=== PATIENT | female | born 1990 | race Caucasian/White ===

== ENCOUNTER 2016-10-25 19:48 | Emergency (ER) | payer OTHER ==
[2016-10-25] MEDS ORDERED: NS 0.9% 1000 ML* 1,000 ML IV ONE (20:42)
[2016-10-25] MEDS ORDERED: diPHENhydraMINE IV* 50 MG/ML 1 ml VIAL (BENADRYL) IV ONE (20:42)
[2016-10-25 21:42] LABS: ALT 16 U/L (7-52); AST 22 U/L (13-39); Albumin 4.2 g/dL (3.2-5.2); Alkaline Phosphatase 39 U/L (34-104); Anion Gap 5 mmol/L (2-11); BUN/Creatinine Ratio 9.2 (8-20); Blood Urea Nitrogen 6 mg/dL (6-24); C Reactive Protein < 1.00 mg/L (< 5.00); CO2 Carbon Dioxide 27 mmol/L (22-32); Calcium 9.5 mg/dL (8.6-10.3); Chloride 105 mmol/L (101-111); EGFR African American 142.8 (>60); EGFR Non-African American 111.1 (>60); Glucose 82 mg/dL (70-100); Potassium 3.6 mmol/L (3.5-5.0); Sodium 137 mmol/L (133-145); Total Protein 7.2 g/dL (6.4-8.9)
[2016-10-25 21:47] LABS: Hematocrit 45 % (35-47); Hemoglobin 15.1 g/dl (12.0-16.0); Mean Corpuscular HGB Conc 34 g/dl (31-36); Mean Corpuscular Hemoglobin 32 pg (27-31); Mean Corpuscular Volume 94 fL (80-97); Mean Platelet Volume 8 um3 (7.4-10.4); Red Cell Distribution Width 12 % (10.5-15); White Blood Count 10.7 10^3/ul (3.5-10.8)
--- NOTE | 2016-10-25 23:03 | ED ---
Refugio Escobar Rebecca, scribed for Elke Garland MD on 10/25/16 at 2035 . Allergic Reaction/Systemic - HPI Summary HPI Summary: Pt is a 25 y/o F who presents to ED c/o allergic reaction to an unknown cause. Reports that she woke up at 0430 this morning with sudden L eye swelling. Sx have been constant and worsening since onset. Sx aggravated and alleviated by nothing, unchanged by cold compresses and natural antihistamines. Additionally c /o a rash behind the R ear and on the upper extremities bilaterally characterized as pruritic hives. Denies any associated pain, ranking pain 0/10. Denies difficulty breathing, fever and difficulty swallowing. Reports she is unsure of the catalyst of symptoms. Does not believe she was bitten by anything recently. Denies any PMHx and any known allergies. Pt works multimedia programmer outside, in the [employer]. - History of Current Complaint Chief Complaint: EDAllergicReaction Time Seen by Provider: 10/25/16 20:28 Hx Obtained From: Patient Hx Last Menstrual Period: current Onset/Duration: Sudden Onset - 0430 today, Still Present Timing: Constant Severity Currently: None Pain Intensity: 0 Pain Scale Used: 0-10 Numeric Location: Discrete @ - Bilateral UE, behind the R ear Character: Swelling - L eye, Pruritus, Hives Aggravating Factor(s): Nothing Alleviating Factor(s): Nothing Associated Signs And Symptoms: Positive: Negative, Other: - Denies fever, difficulty swallowing. Negative: Difficulty Breathing - Allergies/Home Medications Allergies/Adverse Reactions: Allergies Allergy/AdvReac Type Severity Reaction Status Date / Time No Known Allergies Allergy Verified 10/25/16 20:46 PMH/Surg Hx/FS Hx/Imm Hx Previously Healthy: Yes Endocrine/Hematology History: Denies: Hx Diabetes Cardiovascular History: Denies: Hx Hypertension Infectious Disease History: No Infectious Disease History: Denies: Traveled Outside the [place] in Last 30 Days - Family History Known Family History: Negative: Hypertension - Social History Lives: Alone Alcohol Use: None Substance Use Type: Reports: None Smoking Status (MU): Never Smoked Tobacco Review of Systems Negative: Fever Positive: Other - L eye swelling Positive: Other - Denies difficulyt swallowing and breathing Positive: Rash - pruritic hives without any pain All Other Systems Reviewed And Are Negative: Yes Physical Exam - Summary Physical Exam Summary: General: Well appearing, no pain distress Skin: Warm, Dry. Edema, erythema and urticaria all over her face, with the L eye more edematous then the R. There is a small erythematous papule over the inferior lateral aspect of the L eye. Scattered hives all over her body. Eyes: EOMI bilaterally, MARIANN ENT: Pharynx normal, TMs normal Neck: Supple, nontender Respiratory: CTA, breath sounds present, no rhonchi, no wheezes, no rales Cardiovascular: RRR, no murmur, no rub, no gallop Musculoskeletal: DEBORAH, No edema Neuro: Sensory/motor intact, A&Ox3, CN intact 2-12 Psych: Affect/mood appropriate Triage Information Reviewed: Yes Vital Signs On Initial Exam: Initial Vitals Temp Pulse Resp BP Pulse Ox 98.3 F 73 18 119/68 100 10/25/16 20:06 10/25/16 20:06 10/25/16 20:06 10/25/16 20:06 10/25/16 20:06 Vital Signs Reviewed: Yes Diagnostics - Vital Signs Vital Signs Temp Pulse Resp BP Pulse Ox 10/25/16 20:06 98.3 F 73 18 119/68 100 - Laboratory Lab Results: Lab Results 10/25/16 10/25/16 Range/Units 20:32 20:32 WBC 10.7 (3.5-10.8) 10^3/ul RBC 4.80 (4.0-5.4) 10^6/ul Hgb 15.1 (12.0-16.0) g/dl Hct 45 (35-47) % MCV 94 (80-97) fL MCH 32 H (27-31) pg MCHC 34 (31-36) g/dl RDW 12 (10.5-15) % Plt Count 312 (150-450) 10^3/ul MPV 8 (7.4-10.4) um3 Neut % (Auto) 55.5 (38-83) % Lymph % (Auto) 28.2 (25-47) % H[place] % (Auto) 8.7 (1-9) % Eos % (Auto) 7.1 H (0-6) % Baso % (Auto) 0.5 (0-2) % Absolute Neuts (auto) 5.9 (1.5-7.7) 10^3/ul Absolute Lymphs (auto) 3.0 (1.0-4.8) 10^3/ul Absolute Monos (auto) 0.9 H (0-0.8) 10^3/ul Absolute Eos (auto) 0.8 H (0-0.6) 10^3/ul Absolute Basos (auto) 0.1 (0-0.2) 10^3/ul Absolute Nucleated RBC 0.01 10^3/ul Nucleated RBC % 0.1 Sodium 137 (133-145) mmol/L Potassium 3.6 (3.5-5.0) mmol/L Chloride 105 (101-111) mmol/L Carbon Dioxide 27 (22-32) mmol/L Anion Gap 5 (2-11) mmol/L BUN 6 (6-24) mg/dL Creatinine 0.65 (0.51-0.95) mg/dL Est GFR ( Amer) 142.8 (>60) Est GFR (Non-Af Amer) 111.1 (>60) BUN/Creatinine Ratio 9.2 (8-20) Glucose 82 (70-100) mg/dL Calcium 9.5 (8.6-10.3) mg/dL Total Bilirubin 0.30 (0.2-1.0) mg/dL AST 22 (13-39) U/L ALT 16 (7-52) U/L Alkaline Phosphatase 39 (34-104) U/L C-Reactive Protein < 1.00 (< 5.00) mg/L Total Protein 7.2 (6.4-8.9) g/dL Albumin 4.2 (3.2-5.2) g/dL Globulin 3.0 (2-4) g/dL Albumin/Globulin Ratio 1.4 (1-3) Result Diagrams: 10/25/16 20:32 10/25/16 20:32 Lab Statement: Any lab studies that have been ordered have been reviewed, and results considered in the medical decision making process. 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 onset of left eye swelling yesterday and hives that worsened today with difficulty opening left eye tonight and now right eye swelling and facial hives. op is normal, diffuse scattered hives to forearms no sob. wbc is normal. pt didn't want steroids and we discussed the plusses and minuses I do not think this is an infection and she does have eomi . I have put a steroid and augmentin script in for her in case she decides to utilize a steroid and in case she starts getting infection symptoms - Diagnoses Provider Diagnoses: Allergic reaction Discharge - Discharge Plan Condition: Stable Disposition: HOME Prescriptions: Amoxicillin/Clavulanate TAB* [Augmentin TAB 875*] 875 mg PO BID #20 tab Famotidine TAB* [Pepcid 20 MG TAB*] 20 mg PO BID #20 tab Prednisone [Deltasone] 20 mg PO DAILY #20 tab diPHENhydraMINE PO* [Benadryl PO 50 MG CAP*] 50 mg PO Q6H PRN #20 cap MDD 4 PRN Reason: Allergy Symptoms Patient Education Materials: General Allergic Reaction (ED) Referrals: Abiola Baumann MD [Primary Care Provider] - 3 Days Additional Instructions: Return to ED for any returning or worsening symptoms. The documentation as recorded by the Refugio jean Rebecca accurately reflects the service I personally performed and the decisions made by me, Elke Garland MD.
[2016-10-25] MEDS ORDERED: diPHENhydraMINE PO* 25 MG PO ONE (23:50)
[2016-10-26 01:18] VITALS: BP 101/72
== END 2016-10-26 00:10 | disposition home or self-care (01) ==
LOC: ED 19:48
DX: T78.40XA Allergy, unspecified, initial encounter (principal); R21 Rash and other nonspecific skin eruption; X58.XXXA Exposure to other specified factors, initial encounter
CPT/HCPCS: 36415; 80053; 85025; 86140; 96374; 99284; A9270-GY; J1200

== ENCOUNTER 2019-01-13 14:49 | Emergency (ER) | payer OTHER ==
--- NOTE | 2019-01-13 17:14 | UC ---
HPI Febrile Illness - HPI Summary HPI Summary: 28 y/o female presents to the urgent care c/o intermittent fever, body aches and PEÑA since 12/31/2018. Pt reports she has intermittent fevers for 5-6 days and then symptoms improved and Friday fever returned again. Max temp has been 104F. She has taking herbs and Advil PO 400mg to control fever. she also states she has had an intermittent dry cough w/ mild wheezing since November. she has been living in a place where there is mold. She is concerned this is the cause of her symptoms. Pt also states Hx of Tick bite last year 2017 w/o any prophylactic treatment. Pt had 1 episodes of vomiting about 3 days ago which has now resolved. Pt denies dizziness, photophobia, neck pain, joint pains, SOB , chest pain, abdominal pain, N/V/d. - History of Current Complaint Chief Complaint: UCGeneralIllness Time Seen by Provider: 01/13/19 16:53 Hx Obtained From: Patient Hx Last Menstrual Period: 01/13/19 Onset/Duration: Started Weeks Ago - 2 weeks ago, Still Present Timing: Intermittent Temperature: 104 F Initial Severity: Mild Current Severity: Moderate Pain Intensity: 6 - body aches and PEÑA Pain Scale Used: 0-10 Numeric Aggravating Factors: Other: - cough and mild wheezing - Allergy/Home Medications Allergies/Adverse Reactions: Allergies Allergy/AdvReac Type Severity Reaction Status Date / Time No Known Allergies Allergy Verified 01/13/19 18:42 PMH/Surg Hx/FS Hx/Imm Hx Previously Healthy: Yes - Pt denies PMHX - Surgical History Surgical History: None - Family History Known Family History: Positive: None - Pt denies FMHX Negative: Hypertension - Social History Occupation: Employed Full-time Lives: With Family Alcohol Use: Rare Substance Use Type: None Smoking Status (MU): Never Smoked Tobacco Review of Systems All Other Systems Reviewed And Are Negative: Yes Constitutional: Positive: Fever, Chills, Fatigue, Other - body aches Skin: Positive: Negative Eyes: Positive: Negative ENT: Positive: Negative Respiratory: Positive: Cough, Other - mild wheezing Cardiovascular: Positive: Negative Gastrointestinal: Positive: Negative Genitourinary: Positive: Negative Motor: Positive: Negative Neurovascular: Positive: Negative Musculoskeletal: Positive: Negative Neurological: Positive: Negative Psychological: Positive: Negative Is Patient Immunocompromised?: No Physical Exam - Summary Physical Exam Summary: Vital Signs Reviewed: Yes General: well developed, well nourished female sitting in the examining table w/ o any apparent distress Eyes: Positive: Conjunctiva Clear - PERRLA, EOMI, fundi grossly normal ENT: Positive: Normal ENT inspection, Hearing grossly normal, Pharynx normal, Nasal congestion - edematous and erythematous nasal mucosa, Nasal drainage - yellowish drainage, TMs normal. Negative: Tonsillar swelling, Tonsillar exudate Neck: Positive: Supple, Nontender, No Lymphadenopathy Respiratory: no orthopnea or dyspnea. Able to speak in full sentences, no retractions or accessory muscle use, no tripod position, stridor, or head bobbing. Positive breath sounds bilaterally. diffuse scattered wheezing and mild crackles on b/L lungs, no rhonchi or rales. Cardiovascular: Positive: RRR, No Murmur, Pulses Normal, Brisk Capillary Refill Abdomen Description: Positive: Nontender, No Organomegaly, Soft. Negative: CVA Tenderness (R), CVA Tenderness (L) Bowel Sounds: Positive: Present Musculoskeletal Exam: Normal Musculoskeletal: Positive: Strength Intact, ROM Intact, No Edema Neurological Exam: Normal Psychological Exam: Normal Skin Exam: Normal Triage Information Reviewed: Yes Vital Signs: Initial Vital Signs Temp 99.9 F 01/13/19 15:42 Pulse 102 01/13/19 15:42 Resp 18 01/13/19 15:42 BP 90/58 01/13/19 15:42 Pulse Ox 99 01/13/19 15:42 Course/Dx - Course Course Of Treatment: 28 y/o female presents to the urgent care c/o intermittent fever, body aches and PEÑA since 12/31/2018. Pt reports she has intermittent fevers for 5-6 days and then symptoms improved and Friday fever returned again. Max temp has been 104F. She has taking herbs and Advil PO 400mg to control fever. she also states she has had an intermittent dry cough w/ mild wheezing since November. she has been living in a place where there is mold. She is concerned this is the cause of her symptoms. Pt also states Hx of Tick bite last year 2017 w/o any prophylactic treatment. Pt had 1 episodes of vomiting about 3 days ago which has now resolved. Pt denies dizziness, photophobia, neck pain, joint pains, SOB , chest pain, abdominal pain, N/V/d. Hx obtained. Pt is hemodinamically stable , A&OX3, febrile and HR:102bpm and BP:90/58, MEWS criteria level 4. Pt w/ scattered wheezes and mild crackles on bilaterally lungs, on examination. O2Sat:99%. Pt given Tylenol PO and and Duoneb Treatment to alleviate symptoms. Pt tolerated well treatment and lungs improve. Rapid influenza A&B: negative. chest X-ray ordered: IMPRESSION: Nonspecific subtle alveolar and interstitial infiltrates which may reflect bronchopneumonia or interstitial lung disease potentially inhalation lung disease given note of mold exposure. UA: trace of blood. Pt w/ her period today. Pt's symptoms discussed w/ Dr Marie since Pt w/ pneumonia or interstitial lung disease possible due to long exposure to mold. Dr Marie recommended Pt to go to the ER for further management. Parents and PT offered ambulance transfer and the risks of not taking it. Pt declined and Parents stated they will take her to the ER immediately. Dr Marie discussed Pt's symptoms w/ charge Nurse Tena at [facility]. and she accepted the patient. Pt left the clinic hemodynamically stable, A&OX3. - Febrile Illness Differential Diagnoses: Bacteremia, Fever of Unknown Origin, Meningitis, Pneumonia, Sepsis, Viremia, Other: - lyme - Diagnoses Provider Diagnosis: Pneumonia - Provider Notifications Discussed Patient Care With: Jennifer Marie - DR Pavon agreed w/ Pt's plan of care Discharge - Sign-Out/Discharge Documenting (check all that apply): Patient Departure - Ptand parent highly recommended to go to the ER for further management on her pneumonia All imaging exams completed and their final reports reviewed: Yes - Discharge Plan Condition: Stable Disposition: HOME-RECOMMEND TO ED Patient Education Materials: Pneumonia (ED) Referrals: Abiola Baumann MD [Primary Care Provider] - Additional Instructions: I think you need a higher level or care for your presenting symptoms. I highly recommend you to go to the ER for further evaluation and treatment. The risks of not going can be , sepsis, pneumonia, etc. Dr Marie spoke to charge Nurse Tena. They are expecting you. - Billing Disposition and Condition Condition: STABLE Disposition: Home-Recommend to ED - Attestation Statements Provider Attestation: I was available for consult. This patient was seen by the GUANAKO. The patient was not presented to, seen by, or examined by me. -[place]anna
[2019-01-13] MEDS ORDERED: Albuterol/Ipratropium NEB.SOL* Albuterol 2.5 MG/Ipratropium 0.5 MG 3 ML INH ONE (17:15)
[2019-01-13] MEDS ORDERED: Acetaminophen TAB* 325 MG PO ONE (17:17)
[2019-01-13 17:22] VITALS: BP 94/64
[2019-01-13 18:04] LABS: Influenza A Molecular NEGATIVE (Negative); Influenza B Molecular NEGATIVE (Negative)
== END 2019-01-13 18:20 | disposition home health service (06) ==
LOC: UCEAST 14:49
DX: J18.9 Pneumonia, unspecified organism (principal)
CPT/HCPCS: 71046; 81003; 99212; A9270-GY; G0463

== ENCOUNTER 2019-01-13 18:36 | Emergency (ER) | payer OTHER ==
[2019-01-13] MEDS ORDERED: Ketorolac INJ* 30 MG/ML 1 ML VIAL IV PUSH ONE (20:32)
[2019-01-13] MEDS ORDERED: NS 0.9% 1000 ML** 1,000 ML IV ONE (20:33)
--- NOTE | 2019-01-13 20:37 | ED ---
Complex/Multi-Sys Presentation - HPI Summary HPI Summary: 28 year old F presents to [facility] accompanied by 2 parents with a chief complaint of intermittent episodes of fevers, coughs, and body ache lasting for weeks. Patient reports cough started in October 2018 for which she started sleeping outside alleviating the cough. Patient reports body aches started 12/31/18 and that the next day she had a fever. Patient reports the next 4- 5 days she had constant fevers, the highest being 103 F. Patient reports after those episodes she felt better but starting 3 days ago, 01/10/19, she relapsed having body aches and high fevers. Patient reports 104 F today for which she took 2 Tylenol at 1730 at Urgent Care where she had 100.8 F. Patient reports fevers are constant, denying worsening symptoms at night. She notes she vomited 2 nights ago. Patient denies diarrhea and a recent tick bite. Patient describes cough as dry and reports SOB when the fevers are really high. Patient reports menstrual cramps due to current period but denies dysuria. Symptoms aggravated by nothing. Symptoms alleviated by OTC medications and time outside. - History Of Current Complaint Chief Complaint: EDFever Time Seen by Provider: 01/13/19 20:17 Hx Obtained From: Patient Onset/Duration: Lasting Weeks, Still Present Timing: Intermittent, Lasting: Aggravating Factor(s): nothing Alleviating Factor(s): OTC meds, time outside Associated Signs And Symptoms: Positive: SOB, Cough, Nausea, Vomiting, Fever. Negative: Diarrhea, Dysuria - Allergies/Home Medications Allergies/Adverse Reactions: Allergies Allergy/AdvReac Type Severity Reaction Status Date / Time No Known Allergies Allergy Verified 01/13/19 18:42 PMH/Surg Hx/FS Hx/Imm Hx Endocrine/Hematology History: Denies: Hx Diabetes Cardiovascular History: Denies: Hx Hypertension - Surgical History Surgery Procedure, Year, and Place: None - Immunization History Immunizations Up to Date: Yes Infectious Disease History: No Infectious Disease History: Denies: Traveled Outside the [place] in Last 30 Days - Family History Known Family History: Negative: Hypertension - Social History Alcohol Use: Rare Hx Substance Use: No Substance Use Type: Reports: None Hx Tobacco Use: No Smoking Status (MU): Never Smoked Tobacco Review of Systems Constitutional: Other - Body Aches Positive: Fever Positive: Shortness Of Breath, Cough Positive: Vomiting, Nausea. Negative: Diarrhea Negative: dysuria All Other Systems Reviewed And Are Negative: Yes Physical Exam - Summary Physical Exam Summary: VITAL SIGNS: Reviewed. GENERAL: Patient is a well-developed and nourished FEMALE who is lying comfortable in the stretcher. Patient is not in any acute respiratory distress. HEAD AND FACE: No signs of trauma. No ecchymosis, hematomas or skull depressions. No sinus tenderness. EYES: PERRLA, EOMI x 2, No injected conjunctiva, no nystagmus. EARS: Hearing grossly intact. Ear canals and tympanic membranes are within normal limits. MOUTH: Oropharynx within normal limits. NECK: Supple, trachea is midline, no adenopathy, no JVD, no carotid bruit, no c- spine tenderness, neck with full ROM CHEST: Symmetric, no tenderness at palpation LUNGS: Clear to auscultation bilaterally. No wheezing or crackles. CVS: Regular rate and rhythm, S1 and S2 present, no murmurs or gallops appreciated. ABDOMEN: Soft, non-tender. No signs of distention. No rebound no guarding, and no masses palpated. Bowel sounds are normal. EXTREMITIES: FROM in all major joints, no edema, no cyanosis or clubbing. NEURO: Alert and oriented x 3. No acute neurological deficits. Speech is normal and follows commands. SKIN: Dry and warm Triage Information Reviewed: Yes Vital Signs On Initial Exam: Initial Vitals Temp Pulse Resp BP Pulse Ox 98.5 F 101 16 109/76 98 01/13/19 18:38 01/13/19 18:38 01/13/19 18:38 01/13/19 18:38 01/13/19 18:38 Vital Signs Reviewed: Yes Diagnostics - Vital Signs Vital Signs Temp Pulse Resp BP Pulse Ox 01/13/19 18:38 98.5 F 101 16 109/76 98 - Laboratory Result Diagrams: 01/13/19 21:00 01/13/19 21:00 Lab Statement: Any lab studies that have been ordered have been reviewed, and results considered in the medical decision making process. - CT Chest CT CT Interpretation Completed By: Radiologist Summary of CT Findings: Per radiologist,. 1. No acute findings. 2. 5 mm nodule located in the periphery of the right lower lung. If patient. does not have known cancer, follow up should be based on clinical information. because of the low risk of cancer in this age group. (Yung et al.,. Fleischner Society, 2017). ED physician has reviewed this imaging report. Complex Multi-Symp Course/Dx Course Of Treatment: 28 year old F presents to [facility] accompanied by 2 parents with a chief complaint of intermittent episodes of fevers, coughs, and body ache lasting for weeks. Patient reports 104 F today for which she took Advil and 2 Tylenols at 1730 at Urgent Care where she had 100.8 F. Physical exam shows no abnormalities. Blood work shows MCH 32 H, Plt Count 149 L, INR 1.32 H, Potassium 3.3 L, Glucose 126 H, and C-Reactive Protein 105.82 H. Urinalysis shows Ur Specific [place]lin 1.002 L, Urine Blood 2+ A, Ur Squamous Epith Cells Present A, and Urine Bacteria 1+ A. Patient was given acetaminophen 975 mg PO, ketorolac tromethamine 15 mg IV, potassium chloride 40 meq PO and saline. Chest CT reveals 1. No acute findings. 2. 5 mm nodule located in the periphery of the right lower lung. If patient. does not have known cancer, follow up should be based on clinical information. because of the low risk of cancer in this age group. (Lizhojarvis, et al.,. Fleischner Society, 2017). Physician discusses discharge with patient who agrees to plan. Patient will be discharged. Patient intends to follow up with primary care provider within [address] Arriaga, infectious disease, within 1 day. - Diagnoses Provider Diagnoses: Fever Discharge - Sign-Out/Discharge Documenting (check all that apply): Patient Departure - discharge Patient Received Moderate/Deep Sedation with Procedure: No - Discharge Plan Condition: Stable Disposition: HOME Prescriptions: Ibuprofen TAB* [Motrin TAB* 800 MG] 800 mg PO Q6H PRN #30 tab PRN Reason: Pain Or Fever Patient Education Materials: Fever in Adults (ED) Referrals: Durga Arriaga MD [Medical Doctor] - 1 Day Abiola Baumann MD [Primary Care Provider] - 3 Days Additional Instructions: Follow up with Dr. Arriaga, infectious disease, within 1 day and the primary care provider within 3 days. PLEASE RETURN TO THE ED IMMEDIATELY FOR WORSENING OR CONCERNING SYMPTOMS. - Attestation Statements Document Initiated by Scribe: Yes Documenting Scribe: Emma Tariq Provider For Whom Scribe is Documenting (Include Credential): Ezra White MD Scribe Attestation: I, Emma Tariq, scribed for Ezra White MD on 01/14/19 at 0459. Status of Scribe Document: Ready
[2019-01-13 21:00] LABS: Urine Appearance Clear; Urine Bacteria 1+ (Absent); Urine Bilirubin Negative (Negative); Urine Blood 2+ (Negative); Urine Color Straw; Urine Glucose Negative (Negative); Urine Ketones Negative (Negative); Urine Nitrite Negative (Negative); Urine Protein Negative (Negative); Urine Red Blood Cell Trace(0-2/hpf) (Absent); Urine Specific Gravity 1.002 (1.010-1.030); Urine Squamous Epithelial Cell Present (Absent); Urine Urobilinogen Negative (Negative); Urine White Blood Cell Trace(0-5/hpf) (Absent)
[2019-01-13 21:20] LABS: ABS Lymphocytes 1.6 10^3/ul (1.0-4.8); ABS Monocytes 0.4 10^3/ul (0-0.8); ABS Neutrophils 3.4 10^3/ul (1.5-7.7); Eosinophil % 0.1 %; Hematocrit 40 % (35-47); Hemoglobin 13.9 g/dL (12.0-16.0); Lymphocyte % 29.4 %; Mean Corpuscular HGB Conc 35 g/dL (31-36); Mean Corpuscular Hemoglobin 32 pg (27-31); Mean Corpuscular Volume 90 fL (80-97); Nucleated Red Blood Cells % 0.2; Platelet Count 149 10^3/uL (150-450); Red Blood Count 4.41 10^6 /uL (3.70-4.87); Red Cell Distribution Width 13 % (10-15); White Blood Count 5.3 10^3/uL (3.5-10.8)
[2019-01-13 21:35] LABS: Activated Partial Thrombo Time 32.8 seconds (26.0-38.0); INR 1.32 (0.82-1.09)
[2019-01-13 21:36] LABS: Albumin 3.7 g/dL (3.2-5.2); Albumin/Globulin Ratio 1.1 (1-3); BUN/Creatinine Ratio 11.9 (8-20); C Reactive Protein 105.82 mg/L (<8.01); Calcium 8.9 mg/dL (8.6-10.3); EGFR African American 126.8 (>60); EGFR Non-African American 104.8 (>60); Globulin 3.3 g/dL (2-4); Potassium 3.3 mmol/L (3.5-5.0); Total Bilirubin 0.8 mg/dL (0.2-1.0)
[2019-01-13] MEDS ORDERED: Potassium Chlor TAB* 20 MEQ TAB.ER PO ONE (21:40)
[2019-01-13] MEDS ORDERED: Iohexol 300* (CONTRAST) 10 ML SDV IV ONE (21:58)
[2019-01-13] MEDS ORDERED: Acetaminophen TAB* 325 MG PO ONE (21:58)
[2019-01-13] MEDS ORDERED: Codeine TAB* 30 MG PO ONE (23:04)
[2019-01-13] MEDS ORDERED: Albuterol HFA INHALER* 8 gm MDI INH SCH (23:45)
[2019-01-14] MEDS ORDERED: Albuterol HFA INHALER* 8 gm MDI INH ONE (00:16)
[2019-01-14 00:27] VITALS: BP 99/63
== END 2019-01-14 00:25 | disposition home or self-care (01) ==
LOC: ED 18:36
DX: R50.9 Fever, unspecified (principal); R11.2 Nausea with vomiting, unspecified; R05 Cough; M79.10 Myalgia, unspecified site; R06.02 Shortness of breath; R91.1 Solitary pulmonary nodule
CPT/HCPCS: 36415; 71260; 80053; 81003; 81015; 83605; 85025; 85610; 85730; 86140; 86617; 86618; 86666; 87040; 87086; 87798; 96361; 96374; 99283; A9270-GY; J1885; Q9967